=== PATIENT | female | born 1995 | race Caucasian/White ===

== ENCOUNTER 2022-01-25 11:37 | Observation (INO) | payer BC ==
[~2022-01-25] VITALS: Ht 157.5 cm; Wt 93.9 kg
== END 2022-01-25 12:45 | disposition home or self-care (01) ==
LOC: SPU 11:37
PROVIDERS: ADMIT Specialist; ATTEND Specialist
DX: Z34.83 Encounter for supervision of other normal pregnancy, third trimester (principal); Z3A.38 38 weeks gestation of pregnancy
CPT/HCPCS: 59025; 81002; G0378

== ENCOUNTER 2022-01-31 21:04 | Inpatient (IN) | payer BC ==
[~2022-01-31] VITALS: Ht 157.5 cm; Wt 93.9 kg
[2022-01-31] MEDS ORDERED: OXYTOCIN/0.9 % SODIUM CHLORIDE 1,000 ML IV SCH (22:30)
[2022-01-31] MEDS ORDERED: DINOPROSTONE 10 MG SUPP VG ONE (22:30)
[2022-01-31] MEDS ORDERED: TERBUTALINE SULFATE 1 MG/ML VIAL SUBCUT ONE (22:30)
[2022-01-31] MEDS ORDERED: NALBUPHINE HCL 10 MG/ML AMP IVP PRN (22:30)
[2022-01-31 22:46] VITALS: BP_SYST 140
[2022-01-31 23:17] LABS: BASOPHILS % (AUTO) 0.5 % (0.0-2.0); EOSINOPHILS # (AUTO) 0.1 K/uL (0.0-0.4); EOSINOPHILS % (AUTO) 0.9 % (0.0-4.0); HEMATOCRIT 34.7 % (36-48); LYMPHOCYTES # (AUTO) 1.9 K/uL (1.0-5.5); LYMPHOCYTES % (AUTO) 19.8 % (20.5-51.5); MEAN CORPUSCULAR HEMOGLOBIN 29 pg (27-31); MEAN CORPUSCULAR HGB CONC 35 % (32-36); MEAN CORPUSCULAR VOLUME 83 fL (79.0-98.0); MONOCYTES # (AUTO) 0.7 K/uL (0.0-1.0); NEUTROPHILS # (AUTO) 6.9 K/uL (1.8-7.7); NEUTROPHILS % (AUTO) 71.8 % (40.0-70.0); PLATELET COUNT (AUTO) 211 K/uL (130-430); RED BLOOD CELL COUNT(AUTO) 4.16 MIL/uL (4.2-6.2); RED CELL DISTRIBUTION WIDTH 15.8 % (9.0-15.0); WHITE BLOOD COUNT (AUTO) 9.5 K/uL (4.8-10.8)
[2022-01-31 23:29] LABS: BILIRUBIN,URINE NEGATIVE (NEGATIVE); BLOOD, URINE NEGATIVE (NEGATIVE); CLARITY/URINE SL CLOUDY (CLEAR); COLOR,URINE YELLOW (YELLOW); GLUCOSE,URINE NEGATIVE (NEGATIVE); KETONES,URINE TRACE (NEGATIVE); LEUKOCYTE ESTERASE ,URINE NEGATIVE (NEGATIVE); NITRITE, URINE NEGATIVE (NEGATIVE); PH,URINE 6.5 (5.0-8.0); PROTEIN URINE 1+ (NEGATIVE)
[2022-01-31 23:34] LABS: BACTERIA,URINE None Seen /HPF (None Seen); MUCUS,URINE None Seen /LPF (None Seen); RBC,URINE 0-3 /HPF (0-3); WBC,URINE 0-3 /HPF (0-3)
[2022-02-01] MEDS: LR 1,000 ML IV SCH ×3 (00:19→23:40)
[2022-02-01] MEDS: ACETAMINOPHEN 325 MG TABLET PO PRN (06:59)
[2022-02-01] MEDS ORDERED: ROPIVACAINE HCL/PF 0.2% 200 ML ONE (12:52)
[2022-02-01] MEDS ORDERED: fentaNYL CITRATE/PF 100 MCG/2 ML AMP ONE (12:52)
[2022-02-01] MEDS ORDERED: FENT2mCg/mL-ROPIVA0.2%/NS EPID 200 ML EP SCH (14:30)
[2022-02-01] MEDS: ONDANSETRON HCL 4 MG/2 ML VIAL IVP PRN (22:22)
[2022-02-02] MEDS ORDERED: ROPIVACAINE HCL/PF 0.2% 200 ML ONE (03:51)
[2022-02-02] MEDS: ONDANSETRON HCL 4 MG/2 ML VIAL IVP PRN ×2 (04:25→11:35)
[2022-02-02] MEDS: ACETAMINOPHEN 325 MG TABLET PO PRN (08:32)
[2022-02-02] MEDS: LR 1,000 ML IV SCH ×2 (09:12→17:19)
[2022-02-02] MEDS ORDERED: LIDOCAINE PF 1% 30ML(POUR BTL) INJ ONE (16:23)
[2022-02-02] MEDS ORDERED: LIGHT MINERAL OIL 10 ML VIAL MC ONE (16:23)
[2022-02-02] MEDS ORDERED: NALOXONE HCL 0.4 MG/ML AMP (NARCAN) ONE (16:23)
[2022-02-02] MEDS ORDERED: LANOLIN 7 GM OINT. TP PRN (18:15)
[2022-02-02] MEDS ORDERED: HYDROcodone/ACETAMIN 5-325 MG TAB (NORCO/ VICODIN) PO PRN (18:15)
[2022-02-02] MEDS ORDERED: OXYCODONE/ACETAMINOPHEN 5-325 TABLET PO PRN (18:15)
[2022-02-02] MEDS ORDERED: RHO(D) IMMUNE GLOBULIN/MALTOSE 1500 UNITS/1.3 ML (WINHRO) IM PRN (18:15)
[2022-02-02] MEDS ORDERED: METHYLERGONOVINE MALEATE 0.2 MG TABLET PO PRN (18:15)
[2022-02-02] MEDS ORDERED: OXYTOCIN/0.9 % SODIUM CHLORIDE 1,000 ML IV SCH (18:15)
[2022-02-02] MEDS ORDERED: OXYTOCIN/0.9 % SODIUM CHLORIDE 1,000 ML IV ONE (18:15)
[2022-02-02] MEDS ORDERED: WITCH HAZEL LEAF 1 MED.PAD MED.PAD TP PRN (18:15)
[2022-02-02] MEDS ORDERED: DIPHTH,PERTUSS(ACELL),TET VAC 0.5 ML VIAL (Tdap) I.M. PRN (18:15)
[2022-02-02] MEDS ORDERED: NALOXONE HCL 0.4 MG/ML AMP (NARCAN) IVP PRN (18:15)
[2022-02-02] MEDS ORDERED: ANUSOL 1 EA SUPP.RECT (PREPARATION H) RC PRN (18:15)
[2022-02-02] MEDS ORDERED: DERMOPLAST SPRAY TP PRN (18:15)
[2022-02-02] MEDS ORDERED: HYDROCORTISONE 0.5% CREAM 28.4 GM CREAM.GM. TP PRN (18:15)
[2022-02-02] MEDS ORDERED: MEASLES,MUMPS&RUBELLA VACC/PF 12500 UNIT/0.5 ML VIAL SUBQ PRN (18:15)
[2022-02-02] MEDS ORDERED: TEMAZEPAM 15 MG CAPSULE PO PRN (21:00)
[2022-02-02] MEDS: SENNOSIDES/DOCUSATE SODIUM 1 TAB TABLET(SENOKOT-S) PO SCH (22:23)
[2022-02-02] MEDS: IBUPROFEN 600 MG TABLET PO SCH (23:00)
[2022-02-03] MEDS: OXYCODONE/ACETAMINOPHEN 5-325 TABLET PO PRN ×2 (01:57→19:59)
[2022-02-03] MEDS: IBUPROFEN 600 MG TABLET PO SCH ×3 (06:31→18:18)
[2022-02-03 08:05] LABS: BASOPHILS # (AUTO) 0.1 K/uL (0.0-0.2); BASOPHILS % (AUTO) 0.4 % (0.0-2.0); EOSINOPHILS # (AUTO) 0.1 K/uL (0.0-0.4); EOSINOPHILS % (AUTO) 0.7 % (0.0-4.0); HEMATOCRIT 33.3 % (36-48); HEMOGLOBIN 11.1 g/dL (12.0-16.0); LYMPHOCYTES # (AUTO) 2.6 K/uL (1.0-5.5); LYMPHOCYTES % (AUTO) 18.7 % (20.5-51.5); MEAN CORPUSCULAR HEMOGLOBIN 28 pg (27-31); MEAN CORPUSCULAR HGB CONC 33 % (32-36); MEAN CORPUSCULAR VOLUME 85 fL (79.0-98.0); MONOCYTES # (AUTO) 0.7 K/uL (0.0-1.0); MONOCYTES % (AUTO) 5.1 % (1.7-9.3); NEUTROPHILS # (AUTO) 10.3 K/uL (1.8-7.7); NEUTROPHILS % (AUTO) 75.1 % (40.0-70.0); PLATELET COUNT (AUTO) 220 K/uL (130-430); RED BLOOD CELL COUNT(AUTO) 3.92 MIL/uL (4.2-6.2); RED CELL DISTRIBUTION WIDTH 15.9 % (9.0-15.0); WHITE BLOOD COUNT (AUTO) 13.7 K/uL (4.8-10.8)
[2022-02-03] MEDS ORDERED: DOCUSATE SODIUM 100 MG CAPSULE PO SCH (09:00)
[2022-02-03] MEDS: SENNOSIDES/DOCUSATE SODIUM 1 TAB TABLET(SENOKOT-S) PO SCH (19:59)
[2022-02-04] MEDS: IBUPROFEN 600 MG TABLET PO SCH ×2 (06:18)
[2022-02-04 20:06] LABS: FTA-Ab (T PALLIDUM) Non Reactive (Non Reactive)
== END 2022-02-04 11:15 | disposition home or self-care (01) | DRG 807 ==
LOC: SPU 21:04
PROVIDERS: ADMIT Specialist; ATTEND Specialist
PROC: 10E0XZZ Delivery of Products of Conception, External Approach (ICD-10-PCS; principal; 2022-02-02)
PROC: 10907ZC Drainage of Amniotic Fluid, Therapeutic from Products of Conception, Via Natural or Artificial Opening (ICD-10-PCS; 2022-02-02)
PROC: 3E0R3BZ Introduction of Anesthetic Agent into Spinal Canal, Percutaneous Approach (ICD-10-PCS; 2022-02-02)
PROC: 00HU33Z Insertion of Infusion Device into Spinal Canal, Percutaneous Approach (ICD-10-PCS; 2022-02-02)
PROC: 3E0P7VZ Introduction of Hormone into Female Reproductive, Via Natural or Artificial Opening (ICD-10-PCS; 2022-02-02)
PROC: 30233S1 Transfusion of Nonautologous Globulin into Peripheral Vein, Percutaneous Approach (ICD-10-PCS; 2022-02-03)
DX: O77.0 Labor and delivery complicated by meconium in amniotic fluid (principal); Z37.0 Single live birth; O69.81X0 Labor and delivery complicated by cord around neck, without compression, not applicable or unspecified; Z20.822 Contact with and (suspected) exposure to COVID-19; Z3A.39 39 weeks gestation of pregnancy
CPT/HCPCS: 36415; 76805-TC; 81000; 81002; 85025; 86592; 86780; 86886; 86900; 86901; 88307; 94760; J2001; J2310; J2405; J2590; J2790; J3010; J7120